=== PATIENT | female | born 1985 | race Caucasian/White ===

== ENCOUNTER 2019-08-23 06:36 | Outpatient (RCR) | payer BC, OTHER, SELFPAY ==
[2019-08-22 14:29] LABS: Hematocrit 22.6 % (37.0-47.0)
[2019-08-22 14:43] LABS: Hemoglobin 5.9 g/dL (12.0-15.0)
[2019-08-23] VITALS (9 sets, daily range): BP systolic 101–110; BP diastolic 43–61; PULSE 64–79; RESP 14–16; TEMP 36.9–37.3; O2SAT 100–101
[2019-08-23] MEDS: ACETAMINOPHEN 325 MG TABLET 650 MG PO (07:13)
== END 2019-11-20 23:59 | disposition home or self-care (01) ==
LOC: ANHCPCTRAN 06:36
PROVIDERS: PCP Family Medicine; Visit Provider Family Medicine
DX: D64.9 Anemia, unspecified (principal); D25.9 Leiomyoma of uterus, unspecified
CPT/HCPCS: 36415; 36430; 85014; 85018; 86850; 86900; 86901; 86920; A9270; J7050; P9016